=== PATIENT | male | born 1995 | race Caucasian/White ===

== ENCOUNTER 2018-11-07 23:54 | Emergency (ER) | payer OTHER ==
[~2018-11-07] VITALS: Ht 170.2 cm; Wt 65.9 kg
[2018-11-08 00:05] VITALS: Ht 170.2 cm; Wt 65.9 kg
[2018-11-08 00:50] VITALS: BP 127/73; PULSE 94; RESP 17
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
== END 2018-11-08 01:00 | disposition home or self-care (01) ==
LOC: E/R 23:54
DX: S61.432A Puncture wound without foreign body of left hand, initial encounter (principal); F10.920 Alcohol use, unspecified with intoxication, uncomplicated; F17.210 Nicotine dependence, cigarettes, uncomplicated; W25.XXXA Contact with sharp glass, initial encounter; Y92.9 Unspecified place or not applicable
CPT/HCPCS: 99282